=== PATIENT | male | born 1960 | race African-American/Black ===

== ENCOUNTER 2017-06-14 16:27 | Emergency (ER) | payer OTHER ==
[~2017-06-14] VITALS: Ht 167.6 cm; Wt 117.0 kg
--- NOTE | ~2017-06-14 | EKG ---
[address] [address] ELECTROCARDIOGRAM REPORT Name: ONEL MEDINA Room #: DEP Elo#: [id number] Admission: 06/14/17 Attend Phys: Discharge: 06/14/17 Date of : 56 Report #: [id number] THIS REPORT FOR: //name// [facility] ED Test Date: 2017-06-14 Test Time: 16:56:40 Pat Name: ONEL MEDINA Department: Room: Gender: Study Hall Supervisor: JOHANN : 1960 Requested By: Rush Feliciano Order Number: [id number] MD: Price Mcadams Measurements Intervals [place] Rate: 71 P: 51 OR: 224 QRS: -13 QRSD: 111 T: 78 QT: 477 QTc: 519 Interpretive Statements Sinus rhythm Prolonged OR interval RSR' in V1 or V2, right VCD Prolonged QT interval Baseline wander in lead(s) V1,V6 Compared to ECG 09/09/2016 21:59:25 No significant change was found Electronically Signed On 06-16-2017 8:41:29 CDT by Price Mcadams [email or web address] <ELECTRONICALLY SIGNED> By: Price Mcadams MD, [facility] 06/16/17 0841 [id number] Price Mcadams MD, [facility] /EPI
[~2017-06-14 16:27] MED LIST: ACETAMINOPHEN325 M1 PO; ALDACTONE25 MG PO; ASPIRIN325 PO; ATENOLOL 100MG100 MG PO; BACTRIM DS TAB1 EACH PO; CARVEDILOL25 MG PO; CLEOCIN HCL150 MG PO; COREG25 MG PO; DEMADEX20 MG; DOXYCYCLINE HY100 M3 PO; FELODIPINE ER10 MG PO; FERRO-TIME325 MG; HYDRALAZINE 5050 M1 PO; HYDROCERIN CREA1 JAR TOP; HYDROXYZINE HCL25 M1 PO; HYDROXYZINE HCL25 M2 PO; LASIX 40 MG TAB40 M1 PO; LASIX 80 MG TAB80 M1 PO; LISINOPRIL20 MG PO; LISINOPRIL40 MG; LISINOPRIL40 MG PO; MEDROLDOSEPACK PO; METOLAZONE 2.52.5 M1; NEPHROCAPS SOFT1 CAP; NORCO 5-325 TA1 EACH PO; PACERONE 200 M200 M1 PO; PHOSLO667 MG PO; PREDNISONE 20 M20 MG PO; PT DOES NOT KNOW MED; RENA-VITE RX T1 EACH PO; RENAL VITAMIN0.8 MG PO; RENVELA800 MG PO; SENSIPAR 30 MG30 M1 PO; TOPROL XL100 MG PO; TORSEMIDE20 MG PO; TRIAM60 TP; TRIAMCINOLONE A80 G2 TOP; TRIAMCINOLONE TOP; UNK BP MED; VALIUM5 MG PO; VISTARIL 25 MG25 M1 PO; WATER PILL; ZYRTEC10 M2 PO
[2017-06-14 17:14] LABS: HEMATOCRIT 34.2 % (42.0-52.0); HEMOGLOBIN 10.8 gm/dL (14.0-18.0); MCH 24.4 pg (26.0-34.0); MCHC 31.6 g/dL (28.0-37.0); MCV 77.3 fL (80.0-100.0); PLATELET COUNT 247 thou/uL (150-400); RBC 4.43 mil/uL (4.50-6.00); RDW 17.6 % (10.5-14.5); WBC 6.8 thou/uL (4.0-11.0)
[2017-06-14 17:15] LABS: MANUAL DIFF YES
[2017-06-14] MEDS ORDERED: RENVELA800 MG PO (17:17)
[2017-06-14 17:25] LABS: CALCIUM 6.8 mg/dL (8.5-10.1); CREATININE 7.5 mg/dL (0.7-1.3); POTASSIUM 3.7 mmol/L (3.5-5.1)
[2017-06-14 17:31] LABS: TROPONIN-I 0.04 ng/mL (<0.04-0.07)
[2017-06-14 17:32] LABS: ABSOLUTE NEUTROPHILS 4.8 thou/uL (1.4-8.2); ANISOCYTOSIS 2+; MICROCYTES 2+; TOTAL CELL COUNT 100
[2017-06-14 17:33] LABS: HYPOCHROMASIA 2+; POLYCHROMASIA OCCASIONAL; TARGET CELLS OCCASIONAL
== END 2017-06-14 18:38 | disposition home or self-care (01) ==
LOC: ER 16:27
PROVIDERS: Physician Assistant
DX: I12.0 Hypertensive chronic kidney disease with stage 5 chronic kidney disease or end stage renal disease (principal); N18.6 End stage renal disease; Z99.2 Dependence on renal dialysis; E83.51 Hypocalcemia; R51 Headache; F10.99 Alcohol use, unspecified with unspecified alcohol-induced disorder

== ENCOUNTER 2018-02-15 23:11 | Emergency (ER) | payer OTHER ==
[~2018-02-15] VITALS: Ht 167.6 cm; Wt 125.2 kg
[~2018-02-15 23:11] MED LIST changes: +CORTISPORIN OTI10 M2 OTIC
== END 2018-02-16 01:30 | disposition home or self-care (01) ==
LOC: ER 23:11
DX: Z45.2 Encounter for adjustment and management of vascular access device (principal); I12.0 Hypertensive chronic kidney disease with stage 5 chronic kidney disease or end stage renal disease; N18.6 End stage renal disease; Z99.2 Dependence on renal dialysis

== ENCOUNTER 2018-02-18 04:43 | Emergency (ER) | payer OTHER ==
[~2018-02-18] VITALS: Ht 167.6 cm; Wt 122.5 kg
== END 2018-02-18 06:08 | disposition home or self-care (01) ==
LOC: ER 04:43
DX: T81.30XA Disruption of wound, unspecified, initial encounter (principal); I12.0 Hypertensive chronic kidney disease with stage 5 chronic kidney disease or end stage renal disease; N18.6 End stage renal disease; Z99.2 Dependence on renal dialysis

== ENCOUNTER 2018-02-28 01:38 | Emergency (ER) | payer OTHER ==
[~2018-02-28] VITALS: Ht 167.6 cm; Wt 122.5 kg
[2018-02-28] MEDS ORDERED: TRIAMCINOLONE A80 G2 TOP (02:24)
[2018-02-28] MEDS ORDERED: KEFLEX500 M1 PO (02:24)
== END 2018-02-28 02:47 | disposition home or self-care (01) ==
LOC: ER 01:38
DX: L01.00 Impetigo, unspecified (principal); L30.9 Dermatitis, unspecified; I12.0 Hypertensive chronic kidney disease with stage 5 chronic kidney disease or end stage renal disease; N18.6 End stage renal disease; Z99.2 Dependence on renal dialysis

== ENCOUNTER 2018-03-05 23:10 | Emergency (ER) | payer OTHER ==
[~2018-03-05] VITALS: Ht 167.6 cm; Wt 122.5 kg
[~2018-03-05 23:10] MED LIST changes: +KEFLEX500 M1 PO
[2018-03-05] MEDS ORDERED: DIALYVITE 8000.8 M1 PO (23:23)
[2018-03-05] MEDS ORDERED: PREDNISONE 20 M20 MG PO (23:54)
[2018-03-05] MEDS ORDERED: HYDROXYZINE HCL10 M1 PO (23:54)
== END 2018-03-06 00:20 | disposition home or self-care (01) ==
LOC: ER 23:10
DX: R21 Rash and other nonspecific skin eruption (principal); I12.0 Hypertensive chronic kidney disease with stage 5 chronic kidney disease or end stage renal disease; N18.6 End stage renal disease; Z99.2 Dependence on renal dialysis

== ENCOUNTER 2018-05-25 23:37 | Emergency (ER) | payer OTHER ==
[~2018-05-25] VITALS: Ht 167.6 cm; Wt 120.2 kg
[~2018-05-25 23:37] MED LIST changes: +DIALYVITE 8000.8 M1 PO; +HYDROXYZINE HCL10 M1 PO
[2018-05-26] MEDS ORDERED: PREDNISONE 20 M20 MG PO (00:52)
[2018-05-26] MEDS ORDERED: TRIAMCINOLONE A80 G2 TOP (00:52)
[2018-05-26] MEDS ORDERED: PRINIVIL20 MG PO (00:53)
== END 2018-05-26 01:05 ==
LOC: ER 23:37
DX: L29.9 Pruritus, unspecified (principal); I12.0 Hypertensive chronic kidney disease with stage 5 chronic kidney disease or end stage renal disease; N18.6 End stage renal disease; Z99.2 Dependence on renal dialysis

== ENCOUNTER 2018-06-26 00:18 | Emergency (ER) | payer OTHER ==
[~2018-06-26] VITALS: Ht 167.6 cm; Wt 120.2 kg
--- NOTE | ~2018-06-26 | EKG ---
[address] [place] [address] ELECTROCARDIOGRAM REPORT Name: ONEL MEDINA Room #: [facility] Elo#: [id number] Admission: 06/26/18 Attend Phys: Discharge: 06/26/18 Date of : 56 Report #: [id number] THIS REPORT FOR: //name// [facility] ED Test Date: 2018-06-26 Test Time: 00:26:39 Pat Name: ONEL MEDINA Department: Room: Gender: M Typesetting Machine Tender: VALENTIN : 1960 Requested By: Aki Richards Order Number: [id number] MD: Price Mcadams Measurements Intervals [place] Rate: 70 P: 29 AR: 236 QRS: 1 QRSD: 146 T: 72 QT: 484 QTc: 523 Interpretive Statements Sinus rhythm Prolonged AR interval Prolonged QT interval Compared to ECG 06/14/2017 16:56:40 No significant change was found Electronically Signed On 06-26-2018 8:23:41 CDT by Price Mcadams [email or web address] <ELECTRONICALLY SIGNED> By: Price Mcadams MD, [facility] 06/26/18822 Price Mcadams MD, [facility] /EPI
[~2018-06-26 00:18] MED LIST changes: +PRINIVIL20 MG PO
[2018-06-26 00:51] LABS: URINE BILIRUBIN NEGATIVE (Negative); URINE BLOOD 2+ (Negative); URINE CLARITY SL CLOUDY; URINE COLOR YELLOW; URINE GLUCOSE-RANDOM* NEGATIVE (Negative); URINE KETONES NEGATIVE (Negative); URINE NITRITE-REFLEX NEGATIVE (Negative); URINE PROTEIN (DIPSTICK) 2+ (Negative); URINE SPECIFIC GRAVITY <= 1.005 (1.005-1.035); URINE UROBILINOGEN 0.2 E.U./dl (0.2-1.0)
[2018-06-26] MEDS ORDERED: DIALYVITE TABL1 EACH PO (00:51)
[2018-06-26 00:53] LABS: URINE LEUKOCYTES-REFLEX 3+ (Negative)
[2018-06-26 01:01] LABS: BACTERIA-REFLEX >30 Many /HPF (None Seen); CASTS None Seen /LPF (None Seen); MUCUS 0-3 Light strn/LPF (None Seen); SQUAMOUS None Seen /LPF (0-3); WBC CLUMPS Moderate (None Seen)
[2018-06-26 01:02] LABS: CRYSTALS None Seen /LPF (None Seen); URINE RBC 3-10 Few /HPF (0-2); URINE WBC-REFLEX >25 Many /HPF (0-5)
[2018-06-26 01:05] LABS: HEMATOCRIT 27.1 % (42.0-52.0); HEMOGLOBIN 8.3 gm/dL (14.0-18.0)
[2018-06-26 01:07] LABS: MCH 23.7 pg (26.0-34.0); MCHC 30.8 g/dL (28.0-37.0); MCV 76.8 fL (80.0-100.0); PLATELET COUNT 246 thou/uL (150-400); RBC 3.53 mil/uL (4.50-6.00); RDW 19.5 % (10.5-14.5); WBC 6.3 thou/uL (4.0-11.0)
[2018-06-26 01:14] LABS: ANION GAP 8 mmol/L (7-16); BUN 27 mg/dL (7-18); CALCIUM 6.9 mg/dL (8.5-10.1); CHLORIDE 98 mmol/L (98-107); CO2 30 mmol/L (21-32); CREATININE 8.3 mg/dL (0.7-1.3); GLUCOSE 95 mg/dL (74-106); POTASSIUM 4.2 mmol/L (3.5-5.1); SODIUM 136 mmol/L (136-145)
[2018-06-26 01:23] LABS: ALBUMIN 3.4 g/dL (3.4-5.0); PHOSPHORUS 4.6 mg/dL (2.5-4.9); SGOT 18 U/L (15-37); SGPT 25 U/L (30-65); TOTAL BILIRUBIN 0.3 mg/dL (<0.1-1.0); TROPONIN-I <0.06 ng/mL (<0.06)
[2018-06-26 01:35] LABS: ABSOLUTE NEUTROPHILS 5.5 thou/uL (1.4-8.2); ANISOCYTOSIS 2+
[2018-06-26] MEDS ORDERED: AUGMENTIN 500-1 EACH PO (02:30)
== END 2018-06-26 02:45 | disposition home or self-care (01) ==
LOC: ER 00:18
PROVIDERS: Emergency Medicine
DX: D64.9 Anemia, unspecified (principal); G47.30 Sleep apnea, unspecified; N39.0 Urinary tract infection, site not specified; I12.0 Hypertensive chronic kidney disease with stage 5 chronic kidney disease or end stage renal disease; N18.6 End stage renal disease; Z99.2 Dependence on renal dialysis

== ENCOUNTER 2018-08-01 19:30 | Emergency (ER) | payer OTHER ==
[~2018-08-01] VITALS: Ht 177.8 cm; Wt 126.1 kg
--- NOTE | ~2018-08-01 | EKG ---
[address] [address] ELECTROCARDIOGRAM REPORT Name: CAROLONEL Room #: [facility] Elo#: [id number] Admission: 08/01/18 Attend Phys: Discharge: 08/01/18 Date of : 56 Report #: [id number] THIS REPORT FOR: //name// [facility] ED Test Date: 2018-08-01 Test Time: 19:33:43 Pat Name: ONEL MEDINA Department: Room: Gender: Wheel Roller: MZOOK : 1960 Requested By: Lanette Waldrop Order Number: [id number] MD: David Silveira Measurements Intervals [place] Rate: 77 P: 33 IN: 220 QRS: -23 QRSD: 119 T: 89 QT: 458 QTc: 519 Interpretive Statements Sinus rhythm Prolonged IN interval Nonspecific intraventricular conduction delay Nonspecific T abnrm, anterolateral leads Compared to ECG 07/23/2018 09:48:37 T-wave abnormality no longer present Electronically Signed On 08-06-2018 16:56:52 CDT by David Silveira [email or web address] <ELECTRONICALLY SIGNED> By: David Silveira MD 08/06/18 1656 32 32 David Silveira MD /EPI
[~2018-08-01 19:30] MED LIST changes: +AUGMENTIN 500-1 EACH PO; +DIALYVITE TABL1 EACH PO; +LORAZEPAM 0.50.5 M1 PO; +VENTOLIN HFA 1818 GM INH
[2018-08-01 20:47] LABS: HEMATOCRIT 33.5 % (42.0-52.0); HEMOGLOBIN 10.5 gm/dL (14.0-18.0); MCH 23.6 pg (26.0-34.0); MCHC 31.3 g/dL (28.0-37.0); MCV 75.5 fL (80.0-100.0); PLATELET COUNT 247 thou/uL (150-400); RBC 4.43 mil/uL (4.50-6.00); RDW 20.7 % (10.5-14.5); WBC 9.8 thou/uL (4.0-11.0)
[2018-08-01 20:55] LABS: ANION GAP 9 mmol/L (7-16); BUN 28 mg/dL (7-18); CALCIUM 6.8 mg/dL (8.5-10.1); CHLORIDE 98 mmol/L (98-107); CO2 30 mmol/L (21-32); CREATININE 6.9 mg/dL (0.7-1.3); GLUCOSE 124 mg/dL (74-106); SODIUM 137 mmol/L (136-145)
[2018-08-01 21:03] LABS: TROPONIN-I <0.06 ng/mL (<0.06)
[2018-08-01 21:10] LABS: ABSOLUTE NEUTROPHILS 8.9 thou/uL (1.4-8.2); ANISOCYTOSIS 2+; POLYCHROMASIA SLIGHT
[2018-08-01 21:11] LABS: HYPOCHROMASIA 1+; MICROCYTES 1+
[2018-08-01] MEDS ORDERED: VISTARIL 25 MG25 M1 PO (21:29)
== END 2018-08-01 21:54 | disposition home or self-care (01) ==
LOC: ER 19:30
PROVIDERS: Student in an Organized Health Care Education/Training Program
DX: R00.2 Palpitations (principal); I12.0 Hypertensive chronic kidney disease with stage 5 chronic kidney disease or end stage renal disease; N18.6 End stage renal disease; Z99.2 Dependence on renal dialysis; F41.9 Anxiety disorder, unspecified

== ENCOUNTER → 2018-09-05 | Outpatient (CLI) | payer OTHER ==
--- NOTE | ~2018-09-05 | 2DMMODE ---
[facility] [address] [place] [address] 2 D/M-MODE ECHOCARDIOGRAM Name: ONEL MEDINA Room #: REG [facility]#: [id number] Admission: 09/05/18 Attend Phys: David Silveira Discharge: Date of : 56 Date of Service: 09/05/18 1517 Report #: [id number] THIS REPORT FOR: //name// APPROVED REPORT Study performed: 09/05/2018 14:23:20 EXAM: Comprehensive 2D, Doppler, and color-flow Echocardiogram Patient Location: Out-Patient Status: routine BSA: 2.41 HR: 77 bpm BP: 134/90 mmHg Rhythm: Irregular Other Information Study Quality: Adequate/morbid obesity Indications Congestive Heart Failure Atrial Fibrillation Dyspnea Palpitations Hx: ESRD, HTN 2D Dimensions RVDd: 43.03 mm IVSd: 15.03 (7-11mm) LVOT Diam: 26.46 (18-24mm) LVDd: 55.30 mm PWd: 14.01 (7-11mm) Ascending Ao: 40.16 (22-36mm) LVDs: 45.51 (25-40mm) Aortic Root: 43.30 mm Volumes Left Atrial Volume (Systole) Single Plane 4CH: 89.06 mL Single Plane 2CH: 78.16 mL LA ESV Index: 37.00 mL/m2 Aortic Valve AoV Peak Silvano.: 1.54 m/s AO Peak Gr.: 9.47 mmHg LVOT Max P.90 mmHg LVOT Max V: 1.11 m/s NEGRITO Vmax: 3.95 cm2 [facility] [address] [place] [address] 2 D/M-MODE ECHOCARDIOGRAM Name: ONEL MEDINA Room #: REG [facility]#: [id number] Admission: 09/05/18 Attend Phys: David Silveira Discharge: Date of : 56 Date of Service: 09/05/18 1517 Report #: [id number] Mitral Valve E/A Ratio: 0.7 MV Decel. Time: 332.67 ms MV E Max Silvano.: 0.56 m/s MV A Silvano.: 0.86 m/s MV PHT: 96.47 ms IVRT: 103.81 ms Pulmonary Valve PV Peak Silvano.: 0.86 m/s PV Peak Gr.: 2.99 mmHg Tricuspid Valve TR Peak Silvano.: 3.27 m/s RAP Estimate: 8.00 mmHg TR Peak Gr.: 42.77 mmHg PA Pressure: 51.00 mmHg Left Ventricle The left ventricle is normal size. Mild to moderate concentric left ventricular hypertrophy. Left ventricular systolic function is mildly decreased. LVEF is 45-50%. Mild diastolic dysfunction is present (impaired relaxation pattern). Right Ventricle Right ventricle is at the upper limits of normal. The right ventricular systolic function is normal. Atria Left atrium is mildly dilated. Right atrium is mildly dilated. Aortic Valve The aortic valve is normal in structure. Trace aortic regurgitation. There is no aortic valvular stenosis. Mitral Valve The mitral valve is normal in structure. Trace mitral regurgitation. Tricuspid Valve The tricuspid valve is normal in structure. Trace to mild tricuspid regurgitation. Estimated PAP is 50-55mmHg. Pulmonic Valve The pulmonary valve is normal in structure. Trace pulmonic regurgitation. [facility] [address] [place] [address] 2 D/M-MODE ECHOCARDIOGRAM Name: ONEL MEDINA Room #: FIFI Gasca#: [id number] Admission: 09/05/18 Attend Phys: David Silveira Discharge: Date of : 56 Date of Service: 09/05/18 1517 Report #: [id number] Great Vessels Aortic root is dilated at 4.3cm. Ascending aorta is dilated at 4.0cm. IVC is borderline dilated and collapses >50% with inspiration. Pericardium There is no pericardial effusion. <Conclusion> The left ventricle is normal size. LVEF is 45-50%. Right ventricle is at the upper limits of normal. Left atrium is mildly dilated. Right atrium is mildly dilated. The aortic valve is normal in structure. Trace aortic regurgitation. The mitral valve is normal in structure. Trace mitral regurgitation. The tricuspid valve is normal in structure. Trace to mild tricuspid regurgitation. Estimated PAP is 50-55mmHg. The pulmonary valve is normal in structure. Trace pulmonic regurgitation. Aortic root is dilated at 4.3cm. Ascending aorta is dilated at 4.0cm. There is no pericardial effusion. <ELECTRONICALLY SIGNED> By: Elder Ashton MD 09/05/18 1517 16 16 Elder Ashton MD /INF
== END ==
LOC: CV 14:12
DX: I12.9 Hypertensive chronic kidney disease with stage 1 through stage 4 chronic kidney disease, or unspecified chronic kidney disease (principal); N18.6 End stage renal disease; I47.1 Supraventricular tachycardia; R00.2 Palpitations

== ENCOUNTER 2018-09-09 12:32 | Emergency (ER) | payer OTHER ==
[~2018-09-09] VITALS: Ht 177.8 cm; Wt 122.5 kg
--- NOTE | ~2018-09-09 | EKG ---
[address] [place] [address] ELECTROCARDIOGRAM REPORT Name: ONEL MEDINA Room #: [facility] KRISSY Gasca#: [id number] Admission: 09/09/18 Attend Phys: Discharge: 09/09/18 Date of : 56 Report #: [id number] THIS REPORT FOR: //name// [facility] ED Test Date: 2018-09-09 Test Time: 13:53:54 Pat Name: ONEL MEDINA Department: Room: Gender: M Credit Support Counselor: [facility] : 1960 Requested By: Ryan Camara Order Number: [id number] MD: Price Mcadams Measurements Intervals [place] Rate: 70 P: 23 IN: 220 QRS: -10 QRSD: 113 T: 92 QT: 507 QTc: 548 Interpretive Statements Sinus rhythm Prolonged IN interval Nonspecific ST and T wave abnormality Prolonged QT interval Compared to ECG 08/01/2018 19:33:43 No significant change was found Electronically Signed On 09-10-2018 9:21:02 CDT by Price Mcadams [email or web address] <ELECTRONICALLY SIGNED> By: Price Mcadams MD, [facility] 09/10/1821 1353 1353 Price Mcadams MD, [facility] /EPI
[2018-09-09 13:26] LABS: HEMOGLOBIN 10.4 gm/dL (14.0-18.0); PLATELET COUNT 250 thou/uL (150-400); WBC 5.5 thou/uL (4.0-11.0)
[2018-09-09 13:28] LABS: HEMATOCRIT 33.6 % (42.0-52.0); MCHC 31.1 g/dL (28.0-37.0); RBC 4.55 mil/uL (4.50-6.00); RDW 21.1 % (10.5-14.5)
[2018-09-09 13:40] LABS: ANION GAP 10 mmol/L (7-16); BUN 42 mg/dL (7-18); CALCIUM 7.4 mg/dL (8.5-10.1); CHLORIDE 103 mmol/L (98-107); CO2 30 mmol/L (21-32); CREATININE 10.1 mg/dL (0.7-1.3); GLUCOSE 108 mg/dL (74-106); POTASSIUM 4.4 mmol/L (3.5-5.1); SODIUM 143 mmol/L (136-145)
[2018-09-09 13:50] LABS: ALBUMIN 3.5 g/dL (3.4-5.0); LIPASE 226 U/L (73-393); SGOT 19 U/L (15-37); SGPT 28 U/L (30-65); TOTAL BILIRUBIN 0.4 mg/dL (<0.1-1.0); TOTAL PROTEIN 7.7 g/dL (6.4-8.2); TROPONIN-I <0.06 ng/mL (<0.06)
[2018-09-09 14:08] LABS: ABSOLUTE NEUTROPHILS 4.2 thou/uL (1.4-8.2)
[2018-09-09 14:09] LABS: HYPOCHROMASIA 3+; MACROCYTES 1+; MICROCYTES 3+; TARGET CELLS FEW
[2018-09-09 14:10] LABS: LARGE PLATELETS FEW
== END 2018-09-09 15:47 | disposition home or self-care (01) ==
LOC: ER 12:32
PROVIDERS: Emergency Medicine
DX: J81.1 Chronic pulmonary edema (principal); R10.13 Epigastric pain; I12.0 Hypertensive chronic kidney disease with stage 5 chronic kidney disease or end stage renal disease; N18.6 End stage renal disease; Z99.2 Dependence on renal dialysis

== ENCOUNTER 2018-10-16 23:09 | Emergency (ER) | payer OTHER ==
[~2018-10-16] VITALS: Ht 177.8 cm; Wt 122.5 kg
--- NOTE | ~2018-10-16 | EKG ---
[address] [place] [address] ELECTROCARDIOGRAM REPORT Name: ONEL MEDINA Room #: [facility] Elo#: [id number] Admission: 10/16/18 Attend Phys: Discharge: 10/17/18 Date of : 56 Report #: [id number] THIS REPORT FOR: //name// [facility] ED Test Date: 2018-10-16 Test Time: 23:28:31 Pat Name: ONEL MEDINA Department: Room: Gender: M Thermospray Operator: alexis leiva : 1960 Requested By: Lanette Waldrop Order Number: [id number] MD: Price Mcadams Measurements Intervals [place] Rate: 79 P: 48 LA: 229 QRS: 13 QRSD: 156 T: 82 QT: 434 QTc: 498 Interpretive Statements Sinus rhythm Prolonged LA interval Nonspecific ST and T wave abnormality Borderline prolonged QT interval Compared to ECG 09/09/2018 13:53:54 No significant change was found Electronically Signed On 10-17-2018 9:04:39 ELECTRICIAN SHOP by Price Mcadams [email or web address] <ELECTRONICALLY SIGNED> By: Price Mcadams MD, [facility] [id number] Price Mcadams MD, [facility] /EPI
[2018-10-16 23:42] LABS: HEMOGLOBIN 12.4 gm/dL (14.0-18.0); MCHC 31.3 g/dL (28.0-37.0); MCV 71.7 fL (80.0-100.0); RDW 21.2 % (10.5-14.5); WBC 6.9 thou/uL (4.0-11.0)
[2018-10-16 23:44] LABS: HEMATOCRIT 39.5 % (42.0-52.0); MCH 22.5 pg (26.0-34.0); PLATELET COUNT 337 thou/uL (150-400); RBC 5.51 mil/uL (4.50-6.00)
[2018-10-16 23:48] LABS: ANION GAP 10 mmol/L (7-16); BUN 36 mg/dL (7-18); CALCIUM 7.7 mg/dL (8.5-10.1); CHLORIDE 93 mmol/L (98-107); CO2 29 mmol/L (21-32); CREATININE 10.2 mg/dL (0.7-1.3); GLUCOSE 94 mg/dL (74-106); POTASSIUM 4.4 mmol/L (3.5-5.1); SODIUM 132 mmol/L (136-145)
[2018-10-16 23:57] LABS: TROPONIN-I <0.06 ng/mL (<0.06)
[2018-10-17 00:04] LABS: ABSOLUTE NEUTROPHILS 5.7 thou/uL (1.4-8.2); ANISOCYTOSIS 2+; HYPOCHROMASIA 2+; MICROCYTES 1+
[2018-10-17 00:05] LABS: POLYCHROMASIA 1+
[2018-10-17] MEDS ORDERED: TESSALON PERLE100 MG PO (00:23)
[2018-10-17] MEDS ORDERED: AZITHROMYCIN 2250 MG PO (00:23)
[2018-10-17] MEDS ORDERED: BENADRYL ITCH28.3 G1 TOP (00:33)
[2018-10-17 00:52] VITALS: BP 144/94
== END 2018-10-17 00:54 | disposition home or self-care (01) ==
LOC: ER 23:09
PROVIDERS: Student in an Organized Health Care Education/Training Program
DX: J18.8 Other pneumonia, unspecified organism (principal); I12.0 Hypertensive chronic kidney disease with stage 5 chronic kidney disease or end stage renal disease; N18.6 End stage renal disease; Z99.2 Dependence on renal dialysis

== ENCOUNTER → 2018-11-01 | Outpatient (CLI) | payer OTHER ==
[~2018-11-01] MED LIST changes: +AZITHROMYCIN 2250 MG PO; +BENADRYL ITCH28.3 G1 TOP; +TESSALON PERLE100 MG PO
--- NOTE | ~2018-11-01 | SLE ---
[facility] [place] [address] [place] [address] POLYSOMNOGRAPHY STUDY Name: ONEL MEDINA Room #: REG [facility]#: [id number] Admission: 11/01/18 Attend Phys: Ehsan Amaro MD Discharge: Date of : 56 Report #: [id number] THIS REPORT FOR: //name// CC: Torres Amaro MD DATE OF SERVICE: 11/01/2018 ATTENDING PHYSICIAN: Dr. Ehsan Amaro. The patient is a 57-year-old who weighs 273 pounds with a BMI of 39.2. The patient has severe subjective hypersomnia with an [place] score of 17. The patient underwent diagnostic sleep study at [facility]. During the night study, the patient spent 355 minutes in bed and slept for only 57.5 minutes with a poor sleep efficiency of 16.2%. Sleep latency was prolonged at 86.9 minutes with absent REM sleep. Overall sleep architecture showed significantly increased stage 1 sleep, which was 78% of the total sleep time and reduced N2 sleep, which was 22% of total sleep time. There was an absent N3 and absent REM sleep. During the night study, the patient had 61 obstructive apneas, no mixed apneas and 2 central apneas and 18 hypopneas. The patient's apnea-hypopnea index was 86 per hour. REM sleep was not observed. Supine AHI was also 86 per hour. EKG monitoring revealed an average heart rate of 76 beats per minute. There were frequent PVCs observed with no sustained arrhythmias seen. PLMS were seen at an index of 100 per hour and 20 per hour caused EEG arousals. Nocturnal oximetry study revealed an average oxygen saturation of 91% with the lowest of 52%. 53 minutes were spent at oxygen saturation of less than 89%. Due to poor sleep efficiency. The patient could not be placed on CPAP. The patient has a history of intolerance to CPAP. IMPRESSION: 1. Severe sleep apnea-hypopnea syndrome at an apnea-hypopnea index of 86 per hour. 2. Very poor sleep efficiency of 16% resulting from sleep onset and sleep maintenance insomnia. 3. Nocturnal hypoxia secondary to obstructive sleep apnea. 4. Severe periodic limb movements of sleep. RECOMMENDATIONS: [facility] [address] [place] [address] POLYSOMNOGRAPHY STUDY Name: CAROLONEL Room #: REG [facility]#: [id number] Admission: 11/01/18 Attend Phys: Ehsan Amaro MD Discharge: Date of : 56 Report #: [id number] 1. The patient should return to the sleep lab for CPAP titration. If the patient remains intolerant to CPAP, then BiPAP could be initiated. 2. Once optimum PAP pressure is achieved, then follow up in 4-6 weeks to assess compliance and to document clinical improvement. 3. Avoid HOSE SUSPENDER CUTTER depressants. 4. Cautioned regarding driving until symptoms of sleep apnea have resolved with the above recommendation. 5. The patient should also be further evaluated for symptoms of restless legs during the day and if present, it can be treated with dopaminergic agonist agents. 6. The patient's insomnia should be further evaluated and treated according to the etiology. By: 1502 1514 Anand Julien MD /nt
== END ==
LOC: SLEEPLAB 22:07
DX: G47.33 Obstructive sleep apnea (adult) (pediatric) (principal); G47.61 Periodic limb movement disorder; G47.00 Insomnia, unspecified; R09.02 Hypoxemia

== ENCOUNTER 2018-11-12 01:03 | Emergency (ER) | payer OTHER ==
[~2018-11-12] VITALS: Ht 177.8 cm; Wt 122.5 kg
[2018-11-12 01:06] VITALS: BP 167/108
[2018-11-12] MEDS ORDERED: HYDROXYZINE HCL25 M1 PO (02:18)
== END 2018-11-12 02:38 | disposition home or self-care (01) ==
LOC: ER 01:03
DX: S21.109A Unspecified open wound of unspecified front wall of thorax without penetration into thoracic cavity, initial encounter (principal); I12.0 Hypertensive chronic kidney disease with stage 5 chronic kidney disease or end stage renal disease; N18.6 End stage renal disease; Z99.2 Dependence on renal dialysis; X58.XXXA Exposure to other specified factors, initial encounter; Y92.89 Other specified places as the place of occurrence of the external cause; Y93.89 Activity, other specified; Y99.8 Other external cause status

== ENCOUNTER 2018-12-23 02:14 | Emergency (ER) | payer OTHER ==
[~2018-12-23] VITALS: Ht 195.6 cm; Wt 113.4 kg
[2018-12-23] MEDS ORDERED: TYLENOL EXTRA500 MG PO (03:02)
[2018-12-23 03:07] VITALS: BP 150/113
[2018-12-23] MEDS ORDERED: ECZEMA ANTI-I28.3 GM TOP (03:07)
== END 2018-12-23 03:11 | disposition home or self-care (01) ==
LOC: ER 02:14
DX: M47.897 Other spondylosis, lumbosacral region (principal); I12.0 Hypertensive chronic kidney disease with stage 5 chronic kidney disease or end stage renal disease; N18.6 End stage renal disease; Z99.2 Dependence on renal dialysis

== ENCOUNTER 2019-04-14 18:13 | Emergency (ER) | payer OTHER ==
[~2019-04-14] VITALS: Ht 167.6 cm; Wt 117.9 kg
[~2019-04-14 18:13] MED LIST changes: +ECZEMA ANTI-I28.3 GM TOP; +TYLENOL EXTRA500 MG PO
[2019-04-14] MEDS ORDERED: NAPROSYN500 MG PO (20:06)
[2019-04-14 20:24] VITALS: BP 154/101
== END 2019-04-14 20:24 | disposition home or self-care (01) ==
LOC: ER 18:13
DX: S93.692A Other sprain of left foot, initial encounter (principal); I12.0 Hypertensive chronic kidney disease with stage 5 chronic kidney disease or end stage renal disease; N18.6 End stage renal disease; Z99.2 Dependence on renal dialysis; W18.39XA Other fall on same level, initial encounter; Y93.89 Activity, other specified; Y92.89 Other specified places as the place of occurrence of the external cause; Y99.8 Other external cause status

== ENCOUNTER 2019-07-06 01:18 | Emergency (ER) | payer OTHER ==
[~2019-07-06] VITALS: Ht 167.6 cm; Wt 120.2 kg
[~2019-07-06 01:18] MED LIST changes: +NAPROSYN500 MG PO
[2019-07-06] MEDS ORDERED: MOBIC15 MG PO (02:49)
[2019-07-06 02:57] VITALS: BP 122/70
== END 2019-07-06 02:58 | disposition home or self-care (01) ==
LOC: ER 01:18
DX: M79.10 Myalgia, unspecified site (principal); N18.6 End stage renal disease; I12.0 Hypertensive chronic kidney disease with stage 5 chronic kidney disease or end stage renal disease

== ENCOUNTER → 2020-07-07 | Outpatient (CLI) | payer OTHER ==
[~2020-07-07] MED LIST changes: +MOBIC15 MG PO
== END ==
LOC: RAD 16:48
PROVIDERS: ATTEND Neuromusculoskeletal Medicine & OMM
DX: R91.8 Other nonspecific abnormal finding of lung field (principal); I51.7 Cardiomegaly; Q25.46 Tortuous aortic arch

== ENCOUNTER → 2020-07-23 | Outpatient (CLI) | payer OTHER | LOC: RAD 09:25 | PROVIDERS: ATTEND Neuromusculoskeletal Medicine & OMM | DX: J98.11 Atelectasis (principal); I51.7 Cardiomegaly ==

== ENCOUNTER → 2020-08-11 | Outpatient (CLI) | payer OTHER | LOC: RAD 08:37 | PROVIDERS: ATTEND Internal Medicine Pulmonary Disease | DX: I51.7 Cardiomegaly (principal) ==

== ENCOUNTER → 2020-08-19 | Outpatient (CLI) | payer OTHER ==
--- NOTE | 2020-08-19 14:59 | 2DMMODE ---
[facility] [place] [address] 2 D/M-MODE ECHOCARDIOGRAM Name: ONEL MEDINA Room #: REG [facility]#: [id number] Admission: 08/19/20 Attend Phys: Ehsan Amaro MD Discharge: Date of : 56 Report #: [id number] THIS REPORT FOR: cc: Torres Hoffman,Elder Nogueira MD ~ APPROVED REPORT Study performed: 08/19/2020 13:26:22 EXAM: Comprehensive 2D, Doppler, and color-flow Echocardiogram Patient Location: Out-Patient Status: routine BSA: 2.26 HR: 67 bpm BP: 134/88 mmHg Rhythm: NSR Other Information Study Quality: Good Indications Dyspnea Hx: CHF, A-fib. 2D Dimensions RVDd: 43.19 mm IVSd: 12.44 (7-11mm) LVOT Diam: 26.23 (18-24mm) LVDd: 59.00 mm PWd: 12.58 (7-11mm) Ascending Ao: 37.67 (22-36mm) LVDs: 56.07 (25-40mm) Aortic Root: 39.74 mm Volumes Left Atrial Volume (Systole) Single Plane 4CH: 94.25 mL Single Plane 2CH: 118.01 mL LA ESV Index: 49.00 mL/m2 Aortic Valve AoV Peak Silvano.: 1.18 m/s AO Peak Gr.: 5.60 mmHg LVOT Max P.64 mmHg LVOT Max V: 1.08 m/s NEGRITO Vmax: 4.92 cm2 [facility] [address] [place] [address] 2 D/M-MODE ECHOCARDIOGRAM Name: CAROLONEL Room #: REG [facility]#: [id number] Admission: 08/19/20 Attend Phys: Ehsan Amaro MD Discharge: Date of : 56 Report #: [id number] Mitral Valve E/A Ratio: 1.4 MV Decel. Time: 273.55 ms MV E Max Silvano.: 0.68 m/s MV A Silvano.: 0.48 m/s MV PHT: 79.33 ms IVRT: 138.41 ms Pulmonary Valve PV Peak Silvano.: 0.90 m/s PV Peak Gr.: 3.25 mmHg Tricuspid Valve TR Peak Silvano.: 3.70 m/s RAP Estimate: 10.00 mmHg TR Peak Gr.: 55.00 mmHg PA Pressure: 65.00 mmHg Left Ventricle Left ventricle is mildly dilated. Mild to moderate concentric left ventricular hypertrophy. Left ventricular systolic function is mildly decreased. LVEF is 45-50%. Moderate diastolic dysfunction is present. Right Ventricle Right ventricle is mildly dilated. The right ventricular systolic function is normal. Atria Left atrium is moderately dilated. Right atrium is moderately dilated. Aortic Valve The aortic valve is normal in structure. Trace aortic regurgitation. There is no aortic valvular stenosis. Mitral Valve The mitral valve is normal in structure. There is no mitral valve regurgitation noted. No evidence of mitral valve stenosis. Tricuspid Valve The tricuspid valve is normal in structure. Mild tricuspid regurgitation. Estimated PAP 60-65mmHg. Pulmonic Valve The pulmonary valve is normal in structure. There is no pulmonic valvular regurgitation. [facility] [address] [address] 2 D/M-MODE ECHOCARDIOGRAM Name: ONEL MEDINA Room #: REG [facility]#: [id number] Admission: 08/19/20 Attend Phys: Ehsan Amaro MD Discharge: Date of : 56 Report #: [id number] Great Vessels Aortic root is mildly dilated. The ascending aorta is normal in size. IVC is dilated and collapses <50% with inspiration. Pericardium There is no pericardial effusion. <Conclusion> Left ventricle is mildly dilated. LVEF is 45-50%. Right ventricle is mildly dilated. Left atrium is moderately dilated. Right atrium is moderately dilated. The aortic valve is normal in structure. The mitral valve is normal in structure. The tricuspid valve is normal in structure. Mild tricuspid regurgitation. Estimated PAP 60-65mmHg. The pulmonary valve is normal in structure. There is no pericardial effusion. <ELECTRONICALLY SIGNED> By: Elder Ashton MD 08/19/20 1458 D: [id number] Elder Ashton MD /INF
== END ==
LOC: CV 13:18
PROVIDERS: ATTEND Internal Medicine Pulmonary Disease
DX: I07.1 Rheumatic tricuspid insufficiency (principal); J84.9 Interstitial pulmonary disease, unspecified; G47.33 Obstructive sleep apnea (adult) (pediatric)

== ENCOUNTER → 2021-03-23 | Outpatient (CLI) | payer MEDICARE | LOC: SJCVC 13:08 | PROVIDERS: ATTEND Internal Medicine Cardiovascular Disease | DX: R94.31 Abnormal electrocardiogram [ECG] [EKG] (principal); I45.10 Unspecified right bundle-branch block; I44.0 Atrioventricular block, first degree; I42.0 Dilated cardiomyopathy; I47.1 Supraventricular tachycardia; I13.2 Hypertensive heart and chronic kidney disease with heart failure and with stage 5 chronic kidney disease, or end stage renal disease; I50.9 Heart failure, unspecified; N18.6 End stage renal disease; I27.20 Pulmonary hypertension, unspecified; J45.909 Unspecified asthma, uncomplicated; G47.33 Obstructive sleep apnea (adult) (pediatric); Z98.890 Other specified postprocedural states; Z99.2 Dependence on renal dialysis; Z88.8 Allergy status to other drugs, medicaments and biological substances; Z79.82 Long term (current) use of aspirin; Z79.899 Other long term (current) drug therapy; Z86.73 Personal history of transient ischemic attack (TIA), and cerebral infarction without residual deficits; Z82.49 Family history of ischemic heart disease and other diseases of the circulatory system ==

== ENCOUNTER 2021-06-24 00:22 | Emergency (ER) | payer MEDICARE ==
[~2021-06-24] VITALS: Ht 167.6 cm; Wt 117.9 kg
[2021-06-24] MEDS ORDERED: VISTARIL 25 MG25 M1 PO ×2 (00:46→00:49)
[2021-06-24] MEDS ORDERED: PREDNISONE 20 M20 M1 PO ×2 (00:46→00:49)
[2021-06-24 01:07] VITALS: BP 110/66
== END 2021-06-24 01:07 | disposition home or self-care (01) ==
LOC: ER 00:22
DX: L29.9 Pruritus, unspecified (principal); I12.0 Hypertensive chronic kidney disease with stage 5 chronic kidney disease or end stage renal disease; N18.6 End stage renal disease; Z79.2 Long term (current) use of antibiotics; Z79.82 Long term (current) use of aspirin; Z79.899 Other long term (current) drug therapy